=== PATIENT | male | born 1960 | race Caucasian/White ===

== ENCOUNTER 2024-03-11 22:41 | Emergency (ER) | payer BC, SELFPAY ==
[2024-03-11 22:43] VITALS: BP 152/107
[2024-03-11 23:57] VITALS: BMI 24.4
[2024-03-12 00:02] VITALS: BP 164/110
--- NOTE | 2024-03-12 01:12 | ED.GENMED ---
History of Present Illness
General
Chief Complaint: Skin Problem
Source: patient
Exam Limitations: none
Time Seen by Provider: 03/12/24 00:17
Nursing documentation reviewed up to this point in time: agreed with
History of Present Illness
History of Present Illness:
Patient presents to ED after trip and fall in his backyard, where he fell forward and hit his forehead against a rock. Denies loss of consciousness. Denies dizziness. Denies headache. Patient states that his tetanus status is up-to-date. Denies
any other injuries. Patient does not take any blood thinning medications.
Review of Systems
Review of Systems
Allergies reviewed?: Yes
All Other Systems: ROS reviewed and negative except as documented in HPI and ROS
Constitutional: Reports no symptoms
Respiratory: Reports no symptoms
Cardiac: Reports no symptoms
ABD/GI: Reports no symptoms
Musculoskeletal: Reports no symptoms
Skin: Reports other (forehead laceration)
Neurological: Reports no symptoms
Phy Exam
Physical Exam
Physical Exam:
Physical Exam
General: mild distress, not acutely ill. afebrile
Head: an approx 15 cm laceration, in L-shape over middle of forehead, without active bleeding.
Neck: supple. normal range of motion.
Abdomen: normal bowel sounds. not tender.
Neuro: alert and oriented. no focal neurological deficits
Skin: no rash
Psychiatric: well kept. interactive and cooperative
Extremities: no edema. no calf tenderness
Course
Orders/Labs/Results
Orders:
Orders
03/12/24 00:01
CT Head W/o Iv Contrast Urgent
Comment:
Reason For Exam: head injury
Vital Signs
Initial and Last Documented VS:
Initial Vital Signs
Temp Pulse Resp BP Pulse Ox
98.3 F 81 20 152/107 99
03/11/24 22:43 03/11/24 22:43 03/11/24 22:43 03/11/24 22:43 03/11/24 22:43
Last Documented Vital Signs
Temp Pulse Resp BP Pulse Ox
98.3 F 66 16 148/94 99
03/11/24 22:43 03/12/24 02:48 03/12/24 02:48 03/12/24 02:48 03/12/24 02:48
Procedures
Laceration Closure
Middle Forehead:
Status of Wound: clean
Size of Wound in cm: 15
Description of Wound Edges: sharp
Preparation: cleaned with SurClens
Anesthesia: 1% Lidocaine with epi
Revision/Debridement: routine- no revision
Wound exploration: explored to base- no FB
Type of Closure: single layer closure
Skin Closure Material: 5-0 nylon
Number of sutures: 19
MDM/Problems Addressed
MDM/Problems Addressed:
CT head: NAD.
Wound well approximated after placement of 19 sutures. Will advise PCP f/u for re-evaluation, including suture removal in 7-10 days.
Head injury/concussion discussed with patient and family.
*Critical Care Note
Total Time (30-74mins, 75-104mins- exclusive of procedures): Not Applicable
ED Attending Note
-
Portions of this chart may have been created with voice recognition software.� Occasional wrong word or��sound alike� substitutions may have occurred due to the inherent limitations of voice recognition software.
Discharge Plan
Departure
Patient Disposition: Home (Routine Discharge)
Date of Disposition: 03/12/24
Time of Disposition: 02:27
Patient with high blood pressure during this ER visit?: Yes
Discharge Problem:
Forehead laceration, Head injury
Instructions: Head injury in adults, Laceration Repair With Stitches ED
Prescriptions:
No Action
levothyroxine 125 mcg Tablet
125 mcg PO DAILY
lisinopril 5 mg Tablet
5 mg PO DAILY
Referrals:
UNKNOWN - PT NOT,INTERVIEWE [Family Provider] -
Activity Restrictions/Additional Instructions:
As discussed, please follow-up with your primary care physician for reevaluation, including suture removal in 7 to 10 days.
Interventions
Interventions:
*Risk Screen - Suicide Last Done: 03/11/24 22:43
*General Assessment Last Done: 03/11/24 22:43
*Neglect/Abuse Screening Last Done: 03/11/24 22:43
ED- Fall Risk Assessment Last Done: 03/12/24 02:48
*ED COVID-19 Vaccine History Last Done: 03/12/24 02:48
*Nursing Disposition Last Done: 03/12/24 02:48
ED-Skin Assessment Last Done: 03/11/24 23:58
Discharge Date and Time
Discharge Date/Time: 03/12/24 02:49
Print Language: CHILEAN
[2024-03-12 02:48] VITALS: BP 148/94
== END 2024-03-12 02:49 | disposition home or self-care (01) ==
LOC: EMR 22:41
PROVIDERS: EMERGENCY PHYSICIAN Emergency Medicine
DX: S01.81XA Laceration without foreign body of other part of head, initial encounter (principal); S09.90XA Unspecified injury of head, initial encounter; W01.198A Fall on same level from slipping, tripping and stumbling with subsequent striking against other object, initial encounter; Y92.007 Garden or yard of unspecified non-institutional (private) residence as the place of occurrence of the external cause; R03.0 Elevated blood-pressure reading, without diagnosis of hypertension; F10.90 Alcohol use, unspecified, uncomplicated; Z95.0 Presence of cardiac pacemaker
CPT/HCPCS: 99284; 12016; 70450